=== PATIENT | male | born 1945 | race Caucasian/White ===

== ENCOUNTER → 2019-03-26 09:58 | Outpatient (BNVA) | payer MEDICARE, OTHER, SELFPAY | PROVIDERS: Family Provider Nurse Practitioner Family; Visit Provider Internal Medicine Rheumatology | DX: M19.90 Unspecified osteoarthritis, unspecified site (principal); Z79.899 Other long term (current) drug therapy; Z11.59 Encounter for screening for other viral diseases; M76.71 Peroneal tendinitis, right leg; E11.9 Type 2 diabetes mellitus without complications; M81.0 Age-related osteoporosis without current pathological fracture; Z79.84 Long term (current) use of oral hypoglycemic drugs | CPT/HCPCS: 36415; 80076; 82565; 85025; 85651; 86140; 86480; 86704; 86706; 86803; 86812; 87340; 99204 ==

== ENCOUNTER → 2019-03-26 11:22 | Outpatient (BNVA) | payer MEDICARE, OTHER, SELFPAY | PROVIDERS: Family Provider Nurse Practitioner Family; Visit Provider Internal Medicine Rheumatology | DX: Z79.899 Other long term (current) drug therapy (principal); M19.90 Unspecified osteoarthritis, unspecified site; Z11.59 Encounter for screening for other viral diseases; M76.71 Peroneal tendinitis, right leg; E11.9 Type 2 diabetes mellitus without complications; M81.0 Age-related osteoporosis without current pathological fracture | CPT/HCPCS: 85025; 86704; 86706; 86803; 87340 ==

== ENCOUNTER 2019-03-27 09:06 | Outpatient (CLI) | payer MEDICARE, OTHER, SELFPAY ==
--- NOTE | 2019-03-27 09:24 | XR_ITS ---
WS: [id number] CHEST 2 VIEWS HISTORY: inflammatory arthritis COMPARISON: None available. Lungs: Slight pulmonary hyperexpansion. No pulmonary mass or nodule or inflammatory process. Cardiac size: Normal. Mediastinum/Aorta: Mild atherosclerosis aorta. Partially calcified ectatic aorta. Surgical clips over the heart. Bones: Prior cervical fusion hardware. Mild thoracic spondylosis. XR/XR chest 2V* [id number] IMPRESSION: 1. No acute cardiopulmonary disease. 2. No pulmonary nodules or infiltrates. 3. Prior CABG.
--- NOTE | 2019-03-27 09:24 | XR_ITS ---
WS: [id number] LEFT FOOT: 3 VIEW(S) TECHNIQUE: PA, oblique and lateral. HISTORY: inflammatory arthritis COMPARISON: None available. No acute fracture or dislocation. Mild interphalangeal joint space narrowing and narrowing of the first metatarsal phalangeal joint. Small erosions involving the fourth and fifth metatarsal heads. No subluxation or dislocations. Small calcaneal spur and enthesopathy distal Achilles tendon. Peripheral arterial calcifications. XR/XR foot LT min 3V* [id number] IMPRESSION: 1. 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 2. Fourth and fifth metatarsal head erosions from inflammatory arthritis.
--- NOTE | 2019-03-27 09:24 | XR_ITS ---
WS: [id number] RIGHT FOOT: 3 VIEW(S) TECHNIQUE: PA, oblique and lateral. HISTORY: inflammatory arthritis COMPARISON: None available. No acute fracture or dislocation. Moderate interphalangeal joint space narrowing. Mild narrowing of the first metatarsophalangeal joint . Focal erosion involving the fifth metatarsal head. Peripheral arterial calcifications and mild soft tissue edema surrounding the metatarsals. Small calc aneal spur and enthesopathy at the Achilles tendon. XR/XR foot RT min 3V* [id number] IMPRESSION: 1. Interphalangeal joint space narrowing and changes of osteophyte arthritis. 2. Erosion fifth metatarsal head. Suspect inflammatory arthritis.
--- NOTE | 2019-03-27 09:24 | XR_ITS ---
WS: [id number] CERVICAL SPINE 3 VIEWS HISTORY: inflammatory arthritis COMPARISON: None available. Prior anterior cervical fusion with interbody spacer at C5-6. No lucency around the hardware or fract ure. C4 anterolisthesis by 1.7 mm. No acute fracture. Bilateral facet joint arthropathy most signific ant on the LEFT at C3-4 and C4-5. Multilevel mild degenerative disc space narrowing and osteophytosis. C7 is incompletely visualized. Soft tissues are normal. XR/XR cervical spine 3V* [id number] IMPRESSION: 1. Prior anterior cervical fusion and interbody spacer at C5-6. 2. Less than 2 mm anterolisthesis of C4. 3. Multilevel facet joint arthropathy and disc space narrowing, most significa nt on the LEFT at C3-4 and C4-5.
--- NOTE | 2019-03-27 09:24 | XR_ITS ---
WS: [id number] RIGHT HAND: 3 VIEW(S) TECHNIQUE: PA, oblique and lateral. HISTORY: inflammatory arthritis COMPARISON: None available. No acute fracture or dislocation. Severe interphalangeal joint space narrowing. Joint spaces are narrowed with osteophytes developing a nd mild soft tissue edema. There is additional mild narrowing of the metacarpal phalangeal joints. Sm all erosions involving the metacarpal heads of the third and fourth metacarpals. No subluxation or di splacement. Severe degenerative changes at the radiocarpal joint. Small erosions at the radial styloid. Carpal ro ws are narrowed with lucencies in the carpal bones. XR/XR hand RT min 3V* [id number] IMPRESSION: 1. Mixed changes of osteoarthritis and rheumatoid arthritis involving the wris t and hand. 2. Severe inflammatory arthritic changes at the wrist and ulnar styloid.
--- NOTE | 2019-03-27 09:24 | XR_ITS ---
WS: [id number] LEFT HAND: 3 VIEW(S) TECHNIQUE: PA, oblique and lateral. HISTORY: inflammatory arthritis COMPARISON: None available. No acute fracture or dislocation. Moderate interphalangeal joint space narrowing throughout the hand. No subluxation. No periarticular osteopenia. Small erosions involving the second, third and fourth metacarpal heads. Advanced degenera tive changes at the radiocarpal and intercarpal joint spaces. Erosions of the ulnar styloid. XR/XR hand LT min 3V* [id number] IMPRESSION: Mixed mixed pattern of osteoarthritis and rheumatoid arthritis. Most significan t changes of inflammatory arthritis at the wrist. Similar to the RIGHT hand.
--- NOTE | 2019-03-27 09:24 | XR_ITS ---
WS: [id number] DEXA (DUAL ENERGY X-RAY ABSORPTIOMETRY) Bone mineral density was performed using a [employer] machine. HISTORY: inflammatory arthritis, OSTEOPOROSIS, 73-year-old male. COMPARISON: None available. Lumbar spine BMD (L1-L4): 1.398 g/cm2 T score: 1.5 Z score: 2.2 Total hip BMD: Left: 1.011 g/cm2. T score: -0.6 Z score: 0.3 Right: 0.955 g/cm2. T score: -1.0 Z score: -0.1 10 year probability of a major osteoporotic fracture is 9%. XR/XR DEXA axial skeleton* [id number] IMPRESSION: NORMAL BONE MINERAL DENSITY
== END 2019-03-27 09:07 | disposition home or self-care (01) ==
LOC: RADWPI 09:17
PROVIDERS: Family Provider Nurse Practitioner Family; PCP Nurse Practitioner Family; Visit Provider Internal Medicine Rheumatology
DX: M19.042 Primary osteoarthritis, left hand (principal); M06.9 Rheumatoid arthritis, unspecified; M85.841 Other specified disorders of bone density and structure, right hand; Z95.1 Presence of aortocoronary bypass graft; M47.892 Other spondylosis, cervical region
CPT/HCPCS: 71046; 72040; 73130; 73630; 77080

== ENCOUNTER → 2019-04-02 10:47 | Outpatient (BNVA) | payer MEDICARE, OTHER, SELFPAY | PROVIDERS: Family Provider Nurse Practitioner Family; PCP Nurse Practitioner Family; Visit Provider Internal Medicine Rheumatology | DX: M06.9 Rheumatoid arthritis, unspecified (principal); Z79.899 Other long term (current) drug therapy; Z79.52 Long term (current) use of systemic steroids | CPT/HCPCS: 99214 ==

== ENCOUNTER → 2019-05-02 10:57 | Outpatient (BNVA) | payer MEDICARE, OTHER, SELFPAY | PROVIDERS: Family Provider Nurse Practitioner Family; PCP Internal Medicine Rheumatology; Visit Provider Nurse Practitioner Family | DX: E11.9 Type 2 diabetes mellitus without complications (principal); I10 Essential (primary) hypertension; E78.5 Hyperlipidemia, unspecified; Z76.0 Encounter for issue of repeat prescription | CPT/HCPCS: 80053; 80061; 82044; 83036 ==